=== PATIENT | female | born 1990 | race Caucasian/White ===

== ENCOUNTER → 2020-04-12 14:09 | Outpatient (CLI) | payer OTHER, SELFPAY ==
--- NOTE | ~2020-04-12 | XR_ITS ---
XR wrist LT min 3V 04/12/2020 14:20 INDICATION: Left wrist pain PROCEDURE: 4 views left wrist COMPARISON: No prior studies for comparison. FINDINGS: Fracture, dislocation or subluxation is not identified. The soft tissues appear within norm al limits. No foreign bodies are identified. IMPRESSION: 1: NO ACUTE BONE OR JOINT ABNORMALITY IDENTIFIED. Reviewed, dictated and finalized at location B. [employer]
== END ==
PROVIDERS: PCP Family Medicine; Visit Provider Family Medicine
DX: M25.532 Pain in left wrist (principal)
CPT/HCPCS: 73110

== ENCOUNTER 2021-11-11 13:03 | Emergency (ER) | payer OTHER, SELFPAY ==
[2021-11-11 13:10] VITALS: BP 125/75; PULSE 94; RESP 20; TEMP 36.7; O2SAT 99
--- NOTE | 2021-11-11 13:18 | ED.URI ---
HPI - URI/Sore Throat General Chief Complaint: Upper Respiratory Infection Stated Complaint: nausea diarrhea Time Seen by Provider: 11/11/21 13:10 Source: patient and RN notes reviewed History of Present Illness HPI Narrative: Patient is a 31-year-old female who presents the urgent care with complaints of sore throat, nausea, vomiting, diarrhea and headache. Patient states that started with a headache and sore throat on Friday and she has had 2 negative COVID test since then. Patient states that the nausea started last night and she vomited 3 times with 3 loose stools this morning. Patient states that she has no nausea at this time and denies of any abdominal pain. Denies of any fever. States that no one else in the home has been ill. Patient has taken her migraine medicine as well as Mucus Relief and Sudafed. Patient states that she feels good during the day but worse at night and in the morning. No other acute complaints. Denies any urinary symptoms. No acute distress noted. Patient read the plan of care. Some parts of this dictation were generated by voice recognition software and may contain typographical and/or grammatical inaccuracies. Related Data Home Medications Medication Instructions Recorded Confirmed rizatriptan 10 mg tablet 10 mg PO Q8H PRN migraine headache 11/11/21 11/11/21 Allergies Allergy/AdvReac Type Severity Reaction Status Date / Time Penicillins Allergy Intermediate Hives / Verified 11/11/21 13:19 Red Face Review of Systems Review of Systems: CONSTITUTIONAL: Denies fever, chills, or sweats. EYES: Denies visual changes, redness, or discharge. ENT: Denies rhinorrhea, congestion, otalgia. Reports of sore throat CARDIOVASCULAR: Denies chest pain, palpitations, or edema. RESPIRATORY: Denies cough or dyspnea. GASTROINTESTINAL: Reports of nausea, vomiting and diarrhea GENITOURINARY: Denies dysuria or hematuria. SKIN: Denies rash or itching. MUSCULOSKELETAL: Denies back pain, joint pain, or myalgia. NEUROLOGIC: Denies headache, numbness, or weakness. All other systems reviewed are negative, except as documented in HPI. [facility] Past Medical History Medical History Acute non-recurrent maxillary sinusitis Acute otitis media with effusion Anemia (04/13/20) hemoglobin 11.1 on 04/13/2020 BMI 26.0-26.9,adult BMI 27.0-27.9,adult BMI 29.0-29.9,adult Chronic pain of left wrist De Quervain's disease (radial styloid tenosynovitis) Encounter for IUD insertion 03/31/13 Mirena insertion Encounter for IUD removal Encounter for wellness examination in adult Migraine without aura and without status migrainosus, not intractable Otitis media Tobacco use disorder, continuous Surgical History Surgical History History of gynecological procedure (05/03/21) mirena iud removal Family History Family History Grandparent Cancer Diabetes mellitus Father Hypertension Heart disease Mother Hypertension Sibling Thyroid disorder Social History Social History (Updated 11/01/21 @ 14:07 by Chen Ryder MA) Smoking status: Current some day smoker Tobacco type: cigarettes Alcohol intake: current Drinks per week: 1 Alcohol use details: wine Substance use: never Substance use type: does not use 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 There is no relevant family history pertinent to the patient complaint. Exam Narrative: GENERAL: This is a well-nourished, well-developed patient, in no apparent distress. HEAD: normocephalic, atraumatic. EYES: PERRL. Sclera clear/white. Vision is grossly intact. EARS: External ears normal
== END 2021-11-11 13:50 | disposition home or self-care (01) ==
PROVIDERS: Emergency Provider Nurse Practitioner Family
DX: J02.9 Acute pharyngitis, unspecified (principal); R11.2 Nausea with vomiting, unspecified; F17.210 Nicotine dependence, cigarettes, uncomplicated
CPT/HCPCS: 87081; 87880; 99213; G0463